=== PATIENT | male | born 1970 | race Caucasian/White ===

== ENCOUNTER 2018-07-12 18:56 | Emergency (ER) | payer OTHER ==
[2018-07-12 19:14] VITALS: BP 158/97
--- NOTE | 2018-07-12 19:19 | ED Physician Documentation ---
Sore Throat/Dental Pain - HPI Stated Complaint: Right upper dental pain Chief Complaint: Dental Pain Onset: days ago (14) Context: Abscess, Dental Caries Associated Symptoms: chills Worsened By: heat, cold - ROS CONST: no problems CVS/RESP: none GI/: denies: nausea, vomiting NEURO/PSYCH: none - PAST HX Past History: none Allergies/Adverse Reactions: Allergies Allergy/AdvReac Type Severity Reaction Status Date / Time No Known Allergies Allergy Unverified 07/12/18 19:14 Home Medications: Ambulatory Orders Medication Instructions Recorded Omeprazole Magnesium [Prilosec] 20 mg PO PRN PRN 07/12/18 Penicillin V Potassium [Pen V K] 500 mg PO TID #42 tablet 07/12/18 - SOCIAL HX Smoking History: non-smoker Alcohol Use: none Drug Use: none - FAMILY HX Family History: No - VITAL SIGNS Vital Signs: Vital Signs Temp Pulse Resp BP Pulse Ox 98.3 F 96 H 18 158/97 96 07/12/18 19:00 07/12/18 19:00 07/12/18 19:00 07/12/18 19:00 07/12/18 19:00 - REVIEWED ASSESSMENTS Nursing Assessment Reviewed: Yes Vitals Reviewed: Yes Dental Pain Physical Exam - EXAM General Appearance: alert Head/Neck: maxillary swelling (R) Eyes: PERRL Mouth/Throat: dental tenderness (right upper with draining abscess), widespread dental decay Ear/Nose: nml inspection Respiratory: no resp. distress, breath sounds nml, respiratory distress CVS: reg. rate & rhythm, heart sounds nml Abdomen: soft, normal bowel sounds Extremities: non-tender Skin: warm/dry Neuro/Psych: No: weakness Discharge Clincal Impression: Dental abscess Prescriptions: Penicillin V Potassium [Pen V K] 500 mg PO TID #42 tablet Referrals: Primary Doctor,No [Primary Care Provider] - 2 Days Condition: Stable Disposition: 01 HOME, SELF-CARE Decision to Admit: NO Date of Decison to Admit: 07/12/18 Decision Time: 19:23
== END 2018-07-12 19:30 | disposition home or self-care (01) ==
LOC: ED 18:56
DX: K04.7 Periapical abscess without sinus (principal)
CPT/HCPCS: 99281